=== PATIENT | male | born 1980 | race Caucasian/White ===

== ENCOUNTER 2022-06-14 12:36 | Day surgery (SDC) | payer BC ==
[2022-06-07 10:38] VITALS: BMI 23.1
[2022-06-14 12:57] VITALS: TEMP 97.8
[2022-06-14 16:34] VITALS: RESP 20
[2022-06-14 16:41] VITALS: BP 102/60; PULSE 52
== END 2022-06-14 15:45 | disposition home or self-care (01) ==
LOC: FASU-ENDO 12:36
PROVIDERS: ATTEND Internal Medicine Gastroenterology
PROC: 0DJD8ZZ Inspection of Lower Intestinal Tract, Via Natural or Artificial Opening Endoscopic (ICD-10-PCS; principal; 2022-06-14 14:36)
DX: Z12.11 Encounter for screening for malignant neoplasm of colon (principal); K64.1 Second degree hemorrhoids; Z80.0 Family history of malignant neoplasm of digestive organs

== ENCOUNTER 2024-01-13 13:07 | Day surgery (SDC) | payer BC ==
[2024-01-08 11:57] VITALS: BMI 25.0
[2024-01-13 14:52] VITALS: RESP 18; TEMP 97.5
[2024-01-13 15:32] VITALS: BP 110/74; PULSE 84
== END 2024-01-13 15:25 | disposition home or self-care (01) ==
LOC: FASU-ENDO 13:07
PROVIDERS: ATTEND Internal Medicine Gastroenterology
PROC: 0DJD8ZZ Inspection of Lower Intestinal Tract, Via Natural or Artificial Opening Endoscopic (ICD-10-PCS; principal; 2024-01-13 14:31)
DX: Z12.11 Encounter for screening for malignant neoplasm of colon (principal); K64.1 Second degree hemorrhoids; K64.8 Other hemorrhoids; Z83.719 Family history of colon polyps, unspecified